=== PATIENT | female | born 1990 | race Asian ===

== ENCOUNTER 2023-07-02 11:20 | Outpatient (AMB) | payer OTHER, SELFPAY ==
--- NOTE | 2023-07-02 11:24 | A.OFFPC_ITS ---
Vital Signs 07/02/23 11:26 Height 5 ft 1.5 in Weight 166 lb 2 oz BMI 30.9 BP 130/70 Blood Pressure Location Lt brachial Position Sitting Pulse 75 Pulse Source Pulse Oximeter Pulse Oximetry (%) 100 Oxygen Delivery Method Room Air Intake Visit Reasons: New Patient Intake Note: Patient is a new patient here to establish care for Obesity, elevated blood sugar, skin issues (dry patch of skin and hyper pigmentation on face), PCOS, Gestational Diabetes. Transferring care from ([facility]). Medical records have not been requested and have not received. Bilingual Customer Service Required: No Blast Hole Driller: Not Required per policy Accompanied by: Self / Same As Patient Allergies No Known Allergies Allergy (Verified 07/02/23 13:39) Medication List - Last Reconciled 07/02/23 by Alireza Patel MD hydrocortisone 2.5% 1 appl topical BID PRN Tobacco use date assessed: 07/02/23 Dental Screening Dental Screen Date: 07/02/23 Did you have a dental visit in the last 12 months?: Yes Did you have a dental problem in the last 6 months where you did not have access to dental care?: No Was dental information given to patient?: Patient has dentist HPI New Patient HPI Details 33-year-old female presents to the [facility] to establish her care here. Her is a physician at the hospital. Patient is concerned about diabetes. She had gestational diabetes on both of her pregnancies. She needed insulin to control her blood sugar. Prior to the pregnancies she was taking metformin for PCOS. Both her parents are diabetic. Her weight has also increased from 149 lb which was pre weight to her current weight of 166 lb. Patient is also reporting mild symptoms of anxiety. History of anxiety is present in the family. She has currently not working. Also has a rash on the wrist. It could be hyperpigmentation and changes after . [facility] Medical History (Updated 07/02/23 @ 13:45 by Alireza Ptael MD) Generalized anxiety disorder Gestational diabetes Surgical History No pertinent past surgical history Family History Brother Mental health disorder Father Mental health disorder Social History Housing: House Alcohol intake: current Alcohol intake frequency: a few times a month Patient Tobacco Use Status: Never used Tobacco e-Cigarette/Vaping Use: Never Used Second Hand Smoke Exposure: No service: No Current occupational status: unemployed Cognitive needs: No Hearing needs: No Vision needs: Yes (glasses) Questionnaire PHQ-9 Over the last 2 weeks, how often have you been bothered by any of the following problems? 1. Little interest or pleasure in doing things: not at all 2. Feeling down, depressed, or hopeless: not at all 3. Trouble falling or staying asleep, or sleeping too much: not at all 4. Feeling tired or having little energy: not at all 5. Poor appetite or overeating: not at all 6. Feeling bad about yourself - or that you are a failure or have let yourself or your family down: not at all 7. Trouble concentrating on things, such as reading the newspaper or watching television: not at all 8. Moving or speaking so slowly that other people could have noticed. Or the opposite - being so fidgety or restless that you have been moving around a lot more than usual: not at all 9. Thoughts that you would be better off or of hurting yourself in some way: not at all Total score: 0 Depression Screening Interpretation: Negative Depression Screening Done: Yes Source: Developed by Drs. Lee Jarvis, Brenda Bowling, Azar Rg and colleagues, with an educational karan from [employer]. Thrive Questionnaire Date Thrive assessed: 07/02/23 I am a: Patient What is your living situation today?: I have a steady place to live Within the past 12 months, did the food you bought not last and you didn't have the money to get more?: Never true Within the past 12 months, did you worry whether your food would run out before you got money to buy more?: Never true Do you have trouble paying for medicines?: No Do you have trouble getting transportation to medical appointments?: No Do you have trouble paying your heating and electricity bill?: No Do you have trouble taking care of your child, family member or friend?: No Do you have trouble with day-to-day activities such as bathing, preparing meals, shopping, managing finances, etc.?: No Are you currently unemployed and looking for a job?: No Are you interested in more education?: No Currently or been in a relationship where the following occur: no concerns reported AUDIT C Alcohol Use Questionnaire (AUDIT-C) 1. How often do you have a drink containing alcohol?: Never Total Score: 0 DOLLY-7 AMB Questionnaire DOLLY-7 Date DOLLY - 7 assessed: 07/02/23 Feeling nervous, anxious, or on edge: 1 = Several days Not being able to stop or control worryin = More than half the days Worrying too much about different things: 2 = More than half the days Trouble relaxin = Several days Being so restless that it is hard to sit still: 1 = Several days Becoming easily annoyed or irritable: 0 = Not at all Feeling afraid as if something awful might happen: 2 = More than half the days Total DOLLY-7 score (0-4 normal; 5-9 mild; 10-14 moderate; 15-21 severe): 9 Source: Developed by Drs. Lee Jarvis, Brenda Bowling, Azar Rg and colleagues, with an educational karan from [employer]. Physical exam (Primary Care) Vital Signs: Last Vital Signs Pulse 75 07/02/23 11:26 BP 130/70 07/02/23 11:26 Pulse Ox 100 07/02/23 11:26 Oxygen Delivery Method Room Air 07/02/23 11:26 Care Plan Goal for BP management: Blood pressure is in range. BMI result Body Mass Index 30.9 BMI Assessment/Plan discussion: High Tobacco/Smoking Status: Tobacco use Status Tobacco use date assessed 07/02/23 07/02/23 11:38 Patient Tobacco Use Status Never used Tobacco 07/02/23 11:38 e-Cigarette/Vaping Use Never Used 07/02/23 11:38 PHQ-9: PHQ-9 Score PHQ-9: Total score 0 07/02/23 11:38 Depression Screening Interpretation: Negative Thrive Assessment: Date of Thrive Assessment Date Thrive assessed 07/02/23 07/02/23 11:38 Currently or been in a relationship where the following occur: no concerns reported Const General: cooperative and healthy appearing Nutritional Appearance: well nourished Orientation/consciousness: patient oriented x3 Limitations: no limitations HENMT Head: Yes normal to inspection Eyes General: appearance normal, both eyes and all related structures Neck Neck: Yes normal visual inspection Chest Chest palpation & inspection: normal palpation of entire chest wall Resp Effort & Inspection: normal respiratory effort Neuro General: patient oriented x3 Assessment and Plan Assessment & Plan (1) Gestational diabetes: Code(s): O24.419 - Gestational diabetes mellitus in , unspecified control Plan: Blood work has been ordered an A1c will be checked. Will call patient with results. Based on the results metformin will be started. (2) Generalized anxiety disorder: Code(s): F41.1 - Generalized anxiety disorder Plan: Patient is exhibiting very minor symptoms. No medications needed. Advised medication, regular exercise and a healthy nutritious diet. Orders: Orders Hemoglobin A1c Today R73.03 - Prediabetes Thyroid Stimulating Hormone Today R73.03 - Prediabetes Basic Metabolic Panel Today R73.03 - Prediabetes Complete Blood Count no Diff Today R73.03 - Prediabetes Lipid Panel Today R73.03 - Prediabetes Liver Panel Today R73.03 - Prediabetes UA and rflx microscopic Today R73.03 - Prediabetes Medications: New hydrocortisone 2.5% 1 appl topical BID PRN 20 grams 0RF skin irritation Coding Level of Care Code New Pt Level 4 (94450) Diagnoses Gestational diabetes O24.419 Generalized anxiety disorder F41.1
[2023-07-02 11:26] VITALS: BP 130/70; PULSE 75; O2SAT 100; BMI 30.9
== END 2023-07-02 12:12 | disposition home or self-care (01) ==
PROVIDERS: PCP Internal Medicine; Visit Provider Internal Medicine
DX: O24.419 Gestational diabetes mellitus in pregnancy, unspecified control (principal); F41.1 Generalized anxiety disorder
CPT/HCPCS: 99204

== ENCOUNTER 2023-07-02 12:16 | Outpatient (REF) | payer OTHER, SELFPAY ==
[2023-07-02 13:41] LABS: Hematocrit 42.1 % (37.0-47.0); Hemoglobin 13.1 g/dl (12.0-16.0); Mean Corpuscular HGB Conc 31.1 g/dl (31.0-35.0); Mean Corpuscular Hemoglobin 25.5 pg (27.0-33.0); Mean Corpuscular Volume 81.9 fL (80.0-98.0); Mean Platelet Volume 10.6 fL (9.4-12.3); Platelet Count 256 X10*3/uL (160-400); Red Blood Count 5.14 X10*6/uL (4.20-5.50); White Blood Count 6.1 X10*3/uL (4.8-10.8)
[2023-07-02 13:49] LABS: Estimated Average Glucose 105 mg/dL; Hemoglobin A1c % 5.3 % (<6.0)
[2023-07-02 14:30] LABS: Alanine Aminotransferase 13 U/L (0-31); Albumin Level 4.7 g/dL (3.5-5.0); Alkaline Phosphatase 73 U/L (39-117); Anion Gap 13 (12-20); Aspartate Amino Transferase 16 U/L (5-31); Bilirubin Direct 0.3 mg/dL (0.0-0.5); Bilirubin Total 0.7 mg/dL (0.0-1.0); Blood Urea Nitrogen 12 mg/dL (9-16); Calcium 9.8 mg/dL (8.4-10.2); Carbon Dioxide 25 mmol/L (22-29); Chloride 106 mmol/L (96-108); Cholesterol 184 mg/dL (<200); Estimated Glomerular Filt Rate > 60; Glucose Random 95 mg/dL (60-115); HDL Cholesterol 52 mg/dL (>40); LDL Cholesterol Calculated 107 mg/dL (<100); Potassium 3.8 mmol/L (3.3-5.1); Sodium 140 mmol/L (135-145); Triglycerides 127 mg/dL (<150)
[2023-07-02 14:42] LABS: Thyroid Stimulating Hormone 1.07 uIU/mL (0.32-4.0)
[2023-07-02 15:24] LABS: Appearance Urine Clear; Color Urine Yellow; Glucose Urine UA Negative (Negative); Leukocyte Esterase Urine Trace (Negative); Nitrite Urine Negative (Negative); PH 7.5 (5.0-9.0); Specific Gravity - Urine 1.015 (1.005-1.025); UMIC TRIGGER UA YES; Urine Blood Negative (Negative); Urine Ketones Negative (Negative); Urine Protein Negative (Neg-Trace)
[2023-07-02 15:27] LABS: Bacteria Urine 2+ (None Seen); Hyaline Casts Urine 0-2 /LPF (0-2); WBC Urine 0-5 /HPF (0-5)
== END 2023-07-02 12:17 | disposition home or self-care (01) ==
LOC: HO.LAB 12:16
PROVIDERS: PCP Internal Medicine; Visit Provider Internal Medicine
DX: R73.03 Prediabetes (principal)
CPT/HCPCS: 36415; 80048; 80061; 80076; 81001; 83036; 84443; 85027